=== PATIENT | male | born 1995 | race African-American/Black ===

== ENCOUNTER 2021-09-14 03:56 | Emergency (ER) | payer OTHER ==
[2021-09-14] MEDS ORDERED: NORCO 5-325 TA1 EACH PO (04:46)
== END 2021-09-14 05:04 | disposition home or self-care (01) ==
LOC: FER 03:56
DX: M25.522 Pain in left elbow (principal); W19.XXXA Unspecified fall, initial encounter; Y93.67 Activity, basketball
CPT/HCPCS: 73080